=== PATIENT | male | born 1975 | race Caucasian/White ===

== ENCOUNTER 2023-04-09 09:39 | Emergency (ER) | payer MEDICAID ==
[~2023-04-09] VITALS: Ht 175.3 cm; Wt 81.6 kg
[2023-04-09 09:42] VITALS: BP 141/74; PULSE 97; RESP 20; TEMP 98; O2SAT 98
[2023-04-09] MEDS ORDERED: VANCOMYCIN 1,000 MG in DEXTROSE 5% 250 ML IV ONE (10:15)
[2023-04-09] MEDS ORDERED: MORPHINE SULFATE 4 MG/ML SYR IVP ONE (10:15)
[2023-04-09] MEDS ORDERED: ONDANSETRON 4 MG/2 ML VIAL IVP ONE (10:15)
[2023-04-09] MEDS ORDERED: VANCOMYCIN 1,000 MG VIAL ONE (10:40)
[2023-04-09 10:49] LABS: BASOPHILS % (AUTO) 0.1 % (0.0-2.0); EOSINOPHILS % (AUTO) 0.3 % (0.0-4.0); HEMATOCRIT 42.2 % (36-52); HEMOGLOBIN 14.1 g/dL (12.0-18.0); LYMPHOCYTES # (AUTO) 0.9 K/uL (2.0-11.5); LYMPHOCYTES % (AUTO) 8.6 % (20.5-51.1); MEAN CORPUSCULAR HEMOGLOBIN 28 pg (27-31); MEAN CORPUSCULAR HGB CONC 33 g/dL (33-37); MEAN CORPUSCULAR VOLUME 84.6 fL (80-94); MONOCYTES # (AUTO) 0.7 K/uL (0.8-1.0); MONOCYTES % (AUTO) 6.1 % (1.7-9.3); NEUTROPHILS # (AUTO) 9.3 K/uL (1.8-7.7); NEUTROPHILS % (AUTO) 84.9 % (42.2-75.2); PLATELET COUNT (AUTO) 288 K/uL (140-450); RED BLOOD CELL COUNT(AUTO) 4.99 MIL/uL (4.20-6.10); WHITE BLOOD COUNT (AUTO) 10.9 K/uL (4.8-10.8)
[2023-04-09 11:11] LABS: ALBUMIN 2.9 g/dL (3.4-5.0); ANION GAP 10.4 (8-16); CALCIUM 9.4 mg/dL (8.5-10.1); CARBON DIOXIDE 29.4 mmol/L (21-32); POTASSIUM 3.8 mmol/L (3.5-5.1); TOTAL BILIRUBIN 0.4 mg/dL (0.0-1.0); TOTAL PROTEIN, SERUM 7.6 g/dL (6.4-8.2)
[2023-04-09] MEDS ORDERED: ACET-8905 PO (11:58)
[2023-04-09 13:40] VITALS: BP 129/62; PULSE 71; RESP 16; TEMP 98; O2SAT 96
== END 2023-04-09 13:20 | disposition home or self-care (01) ==
LOC: MED 09:39
DX: L03.115 Cellulitis of right lower limb (principal); M70.41 Prepatellar bursitis, right knee; I10 Essential (primary) hypertension; Z79.899 Other long term (current) drug therapy
CPT/HCPCS: 36415; 73562; 80053; 83605; 85025; 86140; 87040; 93971; 96365; 96375; 99285; J2270; J2405; J3370; Q0092; 96361; 96374

== ENCOUNTER 2023-08-10 10:47 | Inpatient (IN) | payer MEDICAID ==
[~2023-08-10] VITALS: Ht 172.7 cm; Wt 93.4 kg
[~2023-08-10 10:47] MED LIST: ACET-8905 PO
[2023-08-10 10:58] VITALS: BP 154/103; PULSE 92; RESP 18; TEMP 97.5; O2SAT 98
[2023-08-10 11:29] LABS: BASOPHILS % (AUTO) 0.5 % (0.0-2.0); EOSINOPHILS # (AUTO) 0.1 K/uL (0-0.4); EOSINOPHILS % (AUTO) 1.9 % (0.0-4.0); HEMATOCRIT 51.6 % (36-52); HEMOGLOBIN 17.4 g/dL (12.0-18.0); LYMPHOCYTES # (AUTO) 1.9 K/uL (2.0-11.5); LYMPHOCYTES % (AUTO) 28.8 % (20.5-51.1); MEAN CORPUSCULAR HEMOGLOBIN 28 pg (27-31); MEAN CORPUSCULAR HGB CONC 34 g/dL (33-37); MONOCYTES # (AUTO) 0.3 K/uL (0.8-1.0); MONOCYTES % (AUTO) 4.5 % (1.7-9.3); NEUTROPHILS # (AUTO) 4.3 K/uL (1.8-7.7); NEUTROPHILS % (AUTO) 64.3 % (42.2-75.2); PLATELET COUNT (AUTO) 235 K/uL (140-450); RED BLOOD CELL COUNT(AUTO) 6.15 MIL/uL (4.20-6.10); RED CELL DISTRIBUTION WIDTH 14.3 % (11.6-13.7); WHITE BLOOD COUNT (AUTO) 6.6 K/uL (4.8-10.8)
[2023-08-10 11:45] LABS: ANION GAP 12.1 (8-16); CARBON DIOXIDE 28.2 mmol/L (21-32); CREATININE 0.9 mg/dL (0.6-1.3); POTASSIUM 4.3 mmol/L (3.5-5.1)
[2023-08-10 13:10] LABS: INR 0.98 (0.8-1.2); PARTIAL THROMBOPLASTIN TIME 30.5 secs (22-35.6); PROTHROMBIN TIME 10.3 secs (10.8-13.4)
[2023-08-10] MEDS ORDERED: HYDR-3293 PO (18:56)
[2023-08-10] MEDS: CLOPIDOGREL 75 MG TAB PO SCH (19:54)
[2023-08-10 21:45] VITALS: BP 163/108; PULSE 61; RESP 18; TEMP 97.6; O2SAT 98
[2023-08-11] VITALS (7 sets, daily range): BP systolic 144–169; BP diastolic 97–109; PULSE 56–93; RESP 15–18; TEMP 97–98.1; O2SAT 95–98
[2023-08-11 06:55] LABS: BASOPHILS % (AUTO) 0.5 % (0.0-2.0); EOSINOPHILS # (AUTO) 0.2 K/uL (0-0.4); EOSINOPHILS % (AUTO) 2.7 % (0.0-4.0); HEMATOCRIT 49.2 % (36-52); HEMOGLOBIN 16.8 g/dL (12.0-18.0); LYMPHOCYTES # (AUTO) 1.9 K/uL (2.0-11.5); LYMPHOCYTES % (AUTO) 28.8 % (20.5-51.1); MEAN CORPUSCULAR HEMOGLOBIN 28 pg (27-31); MEAN CORPUSCULAR HGB CONC 34 g/dL (33-37); MEAN CORPUSCULAR VOLUME 83.4 fL (80-94); MONOCYTES # (AUTO) 0.5 K/uL (0.8-1.0); NEUTROPHILS # (AUTO) 4.1 K/uL (1.8-7.7); PLATELET COUNT (AUTO) 229 K/uL (140-450); RED CELL DISTRIBUTION WIDTH 14.2 % (11.6-13.7); WHITE BLOOD COUNT (AUTO) 6.7 K/uL (4.8-10.8)
[2023-08-11 07:22] LABS: ALBUMIN 3.4 g/dL (3.4-5.0); ANION GAP 10.2 (8-16); CALCIUM 8.8 mg/dL (8.5-10.1); CARBON DIOXIDE 30.1 mmol/L (21-32); CREATININE 0.9 mg/dL (0.6-1.3); POTASSIUM 4.3 mmol/L (3.5-5.1); TOTAL BILIRUBIN 0.4 mg/dL (0.0-1.0); TOTAL PROTEIN, SERUM 7.9 g/dL (6.4-8.2)
[2023-08-11] MEDS: ASPIRIN 81 MG TAB.CHEW PO SCH (08:56)
[2023-08-11] MEDS: ATORVASTATIN 20 MG TAB PO SCH (08:57)
[2023-08-11 16:17] LABS: CHOL/HDL RATIO 5.9 (1-4.5)
[2023-08-12] VITALS: BP 155/109; PULSE 68; PULSE 80; RESP 18; TEMP 97.4; O2SAT 98
[2023-08-12 04:00] VITALS: BP 157/112; PULSE 61; PULSE 67; RESP 18; TEMP 97.1; O2SAT 98
[2023-08-12 06:35] LABS: BASOPHILS % (AUTO) 0.3 % (0.0-2.0); EOSINOPHILS # (AUTO) 0.2 K/uL (0-0.4); EOSINOPHILS % (AUTO) 2.5 % (0.0-4.0); HEMATOCRIT 50.6 % (36-52); HEMOGLOBIN 16.8 g/dL (12.0-18.0); LYMPHOCYTES # (AUTO) 1.9 K/uL (2.0-11.5); LYMPHOCYTES % (AUTO) 27.7 % (20.5-51.1); MEAN CORPUSCULAR HEMOGLOBIN 28 pg (27-31); MEAN CORPUSCULAR HGB CONC 33 g/dL (33-37); MEAN CORPUSCULAR VOLUME 84.4 fL (80-94); MONOCYTES # (AUTO) 0.5 K/uL (0.8-1.0); MONOCYTES % (AUTO) 6.7 % (1.7-9.3); NEUTROPHILS # (AUTO) 4.4 K/uL (1.8-7.7); NEUTROPHILS % (AUTO) 62.8 % (42.2-75.2); PLATELET COUNT (AUTO) 238 K/uL (140-450); RED BLOOD CELL COUNT(AUTO) 5.99 MIL/uL (4.20-6.10); RED CELL DISTRIBUTION WIDTH 14.1 % (11.6-13.7)
[2023-08-12 06:57] LABS: ALBUMIN 3.6 g/dL (3.4-5.0); ANION GAP 11.8 (8-16); CALCIUM 8.9 mg/dL (8.5-10.1); CARBON DIOXIDE 28.3 mmol/L (21-32); CREATININE 0.9 mg/dL (0.6-1.3); POTASSIUM 4.1 mmol/L (3.5-5.1); TOTAL BILIRUBIN 0.3 mg/dL (0.0-1.0); TOTAL PROTEIN, SERUM 8.4 g/dL (6.4-8.2)
[2023-08-12] MEDS: lisinopriL 5 MG TAB PO SCH (09:08)
[2023-08-12] MEDS ORDERED: CLOP75TA55 PO (11:59)
[2023-08-12] MEDS ORDERED: ATOR20TA40 PO (11:59)
[2023-08-12] MEDS ORDERED: ASPI81CT95 PO (11:59)
[2023-08-12 13:45] VITALS: BP 149/104; PULSE 62; RESP 18; TEMP 97
[2023-08-13 11:11] LABS: HEMOGLOBIN A1C 6.1 % (4.8-5.6)
== END 2023-08-12 14:10 | disposition home or self-care (01) | DRG 47 ==
LOC: MED 10:47 → MTU 18:22
PROVIDERS: ADMIT Student in an Organized Health Care Education/Training Program; ATTEND Student in an Organized Health Care Education/Training Program
DX: G45.9 Transient cerebral ischemic attack, unspecified (principal); G93.89 Other specified disorders of brain; R20.0 Anesthesia of skin; I10 Essential (primary) hypertension
CPT/HCPCS: 36415; 70450; 71045; 80048; 80053; 83036; 83721; 84484; 85025; 85610; 85730; 87081; 92526; 93005; 97163-GP; 99285; Q9967